=== PATIENT | female | born 1985 | race Caucasian/White ===

== ENCOUNTER 2025-05-03 18:03 | Outpatient (CLI) | payer BC, SELFPAY ==
[2025-05-03] VITALS (20 sets, daily range): BP systolic 121–142; BP diastolic 74–89; PULSE 88–112; RESP 16; TEMP 36.8; O2SAT 96–99
--- NOTE | 2025-05-03 19:49 | PC.OBNST ---
NST Note NST Note Start: 05/03/25 18:14 Freq: ONCE Status: Active Protocol: Document 05/03/25 19:47 AXEL (Rec: 05/03/25 19:48 Delia [id number]) NST Note 2 Para (# of births) 1 EDC 05/08/25 Gestational Age In 39 Weeks & 2 Days Weeks & Days Other Complaints Pt. here for NST, IUGR 8%, plan for induction in the morning. Reactive Yes Appropriate for Yes Gestational Age ZION Su RN Date 05/03/25 Reactive Yes Appropriate for Yes Gestational Age ZION Peter RN Date 05/03/25 OB NST charge Yes Complete NST Note Yes via Write Note The provider's electronic signature indicates the NST is reactive/appropriate for gestational age. *Note to provider: If an addendum is required, open the patient's chart and click on the note under the Nurse/Allied Health tab.
--- NOTE | 2025-05-03 20:23 | W.PM.NSTNOTE ---
NST Note NST Note NST Note: NST Note NST Note Start: 05/03/25 18:14 Freq: ONCE Status: Discharge Protocol: Document 05/03/25 19:47 Delia (Rec: 05/03/25 19:48 AXEL [id number]) NST Note 2 Para (# of births) 1 EDC 05/08/25 Gestational Age In 39 Weeks & 2 Days Weeks & Days Other Complaints Pt. here for NST, IUGR 8%, plan for induction in the morning. Reactive Yes Appropriate for Yes Gestational Age RN Jorden Su RN Date 05/03/25 Reactive Yes Appropriate for Yes Gestational Age ZION Peter RN Date 05/03/25 OB NST charge Yes Complete NST Note Yes via Write Note Addendum: FHT: Moderate variability, baseline 135 bpm, accels, no decels. Valery
== END 2025-05-03 19:45 | disposition home or self-care (01) ==
LOC: OB OUT 18:04 → OB 18:06
PROVIDERS: PCP Family Medicine; Visit Provider Family Medicine
DX: O36.5930 Maternal care for other known or suspected poor fetal growth, third trimester, not applicable or unspecified (principal); Z3A.39 39 weeks gestation of pregnancy
CPT/HCPCS: 59025; G0463

== ENCOUNTER 2025-05-04 07:30 | Inpatient (IN) | payer BC, SELFPAY ==
[2025-05-04] VITALS (40 sets, daily range): BP systolic 111–182; BP diastolic 56–116; PULSE 72–130; RESP 16–20; TEMP 35.7–36.7; O2SAT 90–100; BMI 35.6
[2025-05-04 09:09] LABS: Hematocrit* 35.5 % (33.0-51.0); Hemoglobin* 11.8 gm/dL (12.0-16.0); Immature Granulocytes Abs Auto 0.05 K/uL (0.00-0.30); Immature Granulocytes Pct Auto 0.5 %; Mean Corpuscular HGB Conc 33 gm/dL (32-36); Mean Corpuscular Hemoglobin 27 pg (26-34); Mean Corpuscular Volume 82 fL (80-100); RDW Coefficient of Variation % 16.0 % (11.5-15.5); Red Blood Count* 4.31 m/uL (4.00-5.20); White Blood Count* 9.37 K/uL (4.50-11.00)
[2025-05-04 09:45] LABS: Lymphocytes Absolute Auto 1.20 K/uL (0.90-2.90); Slide Review Reflex No
--- NOTE | 2025-05-04 09:49 | PM.OBHPLI ---
OB - H&P: HPI Labor/Induction History of Present Illness Time Seen by Provider: 08:40 Date Seen: 05/04/25 Chief Complaint: The patient is a 39 year old 2 para 1 at 39+3 weeks gestation by LMP, who presents for IOL for IUGR. Chief complaint: Maternity : 2 Para: 1 Indications for induction: other (IUGR) Narrative: Nathalie Berumen is a 39 year old female at 39+3 days by LMP c/w 8 week US who presents for IOL for IUGR. Growth US on 05/03 showed EFW 2863g, 8th percentile with AC 24th percentile, SDP 4.3 cm, S/D ratio 2.6 with adequate diastolic flow. Growth had previously been in the 19th percentile at 33 weeks. Repeat US ordered d/t measuring smaller than dates, and no change in fundal height over several weeks. otherwise complicated by AMA with normal level 2 and low risk NIPT, maternal obesity with prepreg BMI 32 on ASA, hx of delivery in IVF , MDD and GUEVARA on sertraline, mild intermittent asthma stable on albuterol, hx of genital herpes with no outbreak this . Patient had requested to take antiviral therapy after 36 weeks, but reports today she never started this. This AM, overall feeling well. Endorses intermittent contractions for about one week. Some more intense than others. Valery every 5-10 mins on the monitor. Normal movement. History of Present Dating criteria: based on LMP care: good care Ultrasounds: normal 1st trimester US and normal mid trimester US Abnormal ultrasound findings: 39+2 week growth US showed EFW 2863 g, 8th percentile Labs Blood type: AB (+) positive Rubella: immune RPR/VDLR: nonreactive GBS status: positive HBsAG: negative Narrative: Hep C neg HIV neg GC chlam neg GCT 98 Review of Systems Status of ROS: Reports: 10 or more systems reviewed and unremarkable except as noted in History and below Meds Home Medications and Allergies Home Medications ?Medication ?Instructions ?Recorded ?Confirmed ?Type acyclovir 400 mg tablet 400 mg PO 3XD 05/04/25 05/04/25 History Held on 05/04/25. Instructions: Not needed since last year aspirin 81 mg tablet,delayed 81 mg PO DAILY 05/04/25 05/04/25 History release (Adult Low Dose Aspirin) azelastine 137 mcg-fluticasone 50 1 spray intranasal BID 05/04/25 05/04/25 History mcg/spray nasal spray hydroxyzine HCl 25 mg tablet 25 mg PO Q6H PRN anxiety 05/04/25 05/04/25 History vit no.95-ferrous 1 tab PO DAILY 05/04/25 05/04/25 History fumarate 28 mg-folic acid 800 mcg tablet () sertraline 100 mg tablet 100 mg PO DAILY 05/04/25 05/04/25 History Allergies Allergy/AdvReac Type Severity Reaction Status Date / Time No Known Drug Allergies Allergy Verified 05/04/25 07:56 OB - H&P: Exam Physical Exam: Vital signs: Temp Pulse Resp BP 98 F 110 H 18 134/87 05/04/25 08:06 05/04/25 09:34 05/04/25 08:06 05/04/25 09:34 Narrative: General appearance: Well-appearing adult female. Alert, oriented and appropriate. Sitting up in hospital bed. HEENT: EOMI, no conjunctival injection or discharge. MMM. Neck: Supple. CV: RRR, no rubs, murmurs or extra heart sounds. Pulm: CTAB, no wheezes, rales or rhonchi. Abdomen: Gravid MSK: Moving all extremities. Ext: Warm and well-perfused. No LE edema. Skin: No rashes appreciated over exposed skin. Neuro: Grossly normal strength and sensation. No focal deficits. Psych: Normal affect. Detailed Labor and Delivery Exam: Dilation (cm): 2 Effacement (%): 50 Cervix position: mid Consistency: soft Cervical ripeness score: 6 Comments: Ctx q5-10 mins Fetus (Single): Station: -2 Amniotic Membrane Status: intact OB - Results Labs Labs: Short CBC 05/04/25 Range/Units 09:00 WBC 9.37 (4.50-11.00) K/uL Hgb 11.8 L (12.0-16.0) gm/dL Hct 35.5 (33.0-51.0) % Plt Count 157 (140-440) K/uL OB - Problem Based A/P Additional Plan (1) with 39 completed weeks gestation: Status: Acute (2) IUGR (intrauterine growth restriction): Problem details: 39 week US with EFW 2863g, 8%ile, normal fluid and S/D ratio 2.6 Status: Acute (3) AMA (advanced maternal age) multigravida 35+: Status: Acute (4) MDD (major depressive disorder): Status: Acute Plan: - Continue sertraline 100 mg daily (5) GUEVARA (generalized anxiety disorder): Status: Acute Plan - Vaginal cytotec per protocol for cervical ripening. Consider AROM, pitocin pending progress - GBS positive. Initiate abx in active labor - FHT category I on admission - May have epidural upon request - Peds will be needed for delivery
[2025-05-04] MEDS: AMPICILLIN 2 GM in 0.9 % SODIUM CHLORIDE Mini-bag 100 ML IVPB (16:53)
[2025-05-04] MEDS: LACTATED RINGERS 1000 ML 1,000 ML 125 ML IV ×2 (16:54→20:52)
--- NOTE | 2025-05-04 17:57 | PM.OBPNL ---
Subjective Time Seen by Provider: 17:57 Date Seen: 05/04/25 Narrative: Patient now s/p 3 doses of vaginal cytotec. Feeling contractions a little more intensely over the past 30 mins or so. S/p ampicillin x 1 dose at 1700. Requests AROM. Objective Vital Signs: Last Vital Signs Temp 98.1 F 05/04/25 16:25 Pulse 115 H 05/04/25 15:31 Resp 20 05/04/25 12:23 BP 139/84 05/04/25 15:31 Pelvic Exam Dilation (cm): 3 Effacement (%): 60 Station: -2 Contractions Monitor mode: External Contraction Frequency: 2-5 Assessment Assessment: induction ongoing Station: -2 Status: Category l Heart Rate Baseline: 140 Assisted Variability: Moderate (6-25) Monitor Accelerations: Present Monitor Decelerations: None Plan Plan: - AROM for clear fluid. Consider pitocin augmentation pending contraction pattern and labor progress - GBS positive. S/p one dose of ampicillin. Second dose due at 2100 - status reassuring - Epidural upon request - Anticipate vaginal delivery
[2025-05-04] MEDS: LIDOCAINE 2% (PF) 5 ML VIAL EPIDURAL (21:13)
[2025-05-04] MEDS: ROPIVACAINE 0.2% 100 ml 100 ML 12 MG EPIDURAL (21:13)
[2025-05-04] MEDS: AMPICILLIN 1 GM in 0.9 % SODIUM CHLORIDE Mini-bag 100 ML IVPB (21:30)
[2025-05-04] MEDS: ONDANSETRON 2 MG/ML inj 4 MG IV (21:33)
--- NOTE | 2025-05-04 22:20 | P.OBPN_ITS ---
Subjective Time Seen by Provider: 21:30 Date Seen: 05/04/25 Narrative: Patient progressively more uncomfortable following AROM. Requested epidural. This was placed and now resting comfortably. Several elevated blood pressures during epidural placement when she was in distress. Objective Vital Signs: Last Vital Signs Temp 96.2 F L 05/04/25 21:41 Pulse 72 05/04/25 22:10 Resp 16 05/04/25 21:41 BP 112/61 05/04/25 22:10 Pulse Ox 97 05/04/25 21:05 Pelvic Exam Dilation (cm): 8 Effacement (%): 90 Station: 0 Contractions Monitor mode: External Contraction Frequency: Poor capture of ctx. Regular every few mins. Assessment Assessment: active labor Station: 0 Amniotic Membrane Status: AROM Status: Category l Heart Rate Baseline: 125 Manipulative Therapy Specialist Variability: Moderate (6-25) Monitor Accelerations: Present Monitor Decelerations: None Plan Plan: - Now resting comfortably with epidural - FHT reassuring - Elevated blood pressures not sustained, however she had had several non-severe range pressures prior in the admission. Pre-eclampsia labs ordered - GBS +, Second dose of ampicillin infusing - Anticipate vaginal delivery
[2025-05-04] MEDS: PHENYLEPHRINE 100 MCG/ML SYRINGE IVP (22:49)
[2025-05-04] MEDS: OXYTOCIN 30 unit/500 ML in NS 30 UNIT/500 ML BAG 300 UNIT IVPB (23:23)
--- NOTE | 2025-05-04 23:47 | W.PM.OBVAGDE ---
OB Procedure Vag Delivery Mother Details Mother Details: The patient is a 39 year-old, 2, Para 1, admitted on 05/04/25 at 39+3 Days gestation for IOL for IUGR. Cervix 2/50/-3 on admission. Received 3 doses of vaginal cytotec for cervical ripening. AROM at 1753 for clear fluid. Rapidly progressed to active labor after AROM. Requested epidural for pain control with good effect. Found to be complete at 2255. Began pushing 2315. Delivered a vigorous female infant over intact perineum at 2319. Cord was cut and clamped immediately, and was brought to the warmer. Required 3 minutes of CPAP and 2-5 breaths of PPV. APGARs 6 and 9. was then brought to the maternal chest. Placenta delivered spontaneously at 2327; complete and 3V. There were no perineal lacerations. QBL 100 cc. Mom and baby are resting comfortably. : 2 Para: 1 Weeks Gestation: 39.3 Admission Date: 05/04/25 Additional Details Amniotic Membrane Status: AROM Amniotic Membrane Rupture Date: 05/04/25 Amniotic Membrane Rupture Time: 17:53 Amniotic Membrane Fluid Description: Clear Analgesia/Anesthesia Type: Epidural Waterbirth: No Pitcoin: No Intrapartal Events: Labor Induction Induction Method: per misoprostol protocol and AROM Delivery augmentation: pitocin Labor Onset: 17:53 Complete: 22:55 Pushin:15 Heart: heart tones during second stage were category I. Delivery Details Delivery Date: 05/04/25 Delivery Time: 23:19 Route of delivery: Infant Gender: Female Infant Viability: Alive; Heart Rate Present Position at Delivery: OA Delivery Details: Delivered via spontaneous vaginal delivery. was placed on maternal abdomen.? Cord was clamped and cut immediately. was brought to the warmer. 1 Minute Interval Total Score: 6 5 Minute Interval Total Score: 9 Additional Details Shoulder Dystocia: No Placenta Delivery Time: 23:27 Placental Delivery Description: Spontaneous Delivery repair: Vicryl Procedure Done: Global Blood Loss: 100 Laceration: None Episiotomy Description: None Blood Loss Measurement Type: QBL Bakri Used: No Sponge/Need Count Correct: Yes Cord Vessel Description: 3 Vessels Event Summary Status: Mother and infant were stable after delivery. Disposition: floor
[2025-05-04 23:52] LABS: Protein Creatinine Ratio Urine 0.28 (0-0.19)
[2025-05-04 23:55] LABS: Hematocrit* 36.6 % (33.0-51.0); Hemoglobin* 12.1 gm/dL (12.0-16.0); Mean Corpuscular HGB Conc 33 gm/dL (32-36); Mean Corpuscular Hemoglobin 28 pg (26-34); Mean Corpuscular Volume 83 fL (80-100); Red Blood Count* 4.39 m/uL (4.00-5.20); White Blood Count* 17.78 K/uL (4.50-11.00)
[2025-05-05] VITALS (16 sets, daily range): BP systolic 121–152; BP diastolic 65–90; PULSE 63–98; RESP 16–18; TEMP 36.4–36.9; O2SAT 96–99
[2025-05-05 00:13] LABS: Alanine Aminotransferase* 13 U/L (4-35); Aspartate Amino Transferase* 27 U/L (12-35); Blood Urea Nitrogen* 9 mg/dL (5-24); Creatinine* 0.6 mg/dL (0.5-1.5); Est. Creatinine Clearance* 101.53; Estimated Glomerular Filt Rate 118 ml/min
[2025-05-05 00:24] LABS: Slide Review Reflex No
[2025-05-05] MEDS: ACETAMINOPHEN 500 MG TABLET 1000 MG PO ×2 (03:38→12:17)
[2025-05-05 06:30] LABS: Hematocrit* 34.9 % (33.0-51.0); Hemoglobin* 11.5 gm/dL (12.0-16.0); Mean Corpuscular HGB Conc 33 gm/dL (32-36); Mean Corpuscular Hemoglobin 27 pg (26-34); Mean Corpuscular Volume 83 fL (80-100); Red Blood Count* 4.20 m/uL (4.00-5.20); White Blood Count* 15.25 K/uL (4.50-11.00)
[2025-05-05 06:31] LABS: Blood Urea Nitrogen* 7 mg/dL (5-24); Creatinine* 0.6 mg/dL (0.5-1.5); Est. Creatinine Clearance* 101.53; Estimated Glomerular Filt Rate 118 ml/min
[2025-05-05 06:32] LABS: Alanine Aminotransferase* 11 U/L (4-35); Aspartate Amino Transferase* 27 U/L (12-35)
[2025-05-05 06:40] LABS: Slide Review Reflex No
--- NOTE | 2025-05-05 07:25 | P.OBPN_ITS ---
OB - PN: Obj Exam Physical Exam: Vital signs: Temp Pulse Resp BP Pulse Ox O2 Del Method 97.8 F 98 16 129/84 96 Room Air 05/05/25 05:04 05/05/25 05:04 05/05/25 05:04 05/05/25 05:04 05/05/25 05:04 05/05/25 05:04 OB - PN: Obj Data Labs Labs: Laboratory Results - last 24 hr 05/04/25 05/04/25 05/04/25 09:00 23:50 Unknown WBC 9.37 17.78 H RBC 4.31 4.39 Hgb 11.8 L 12.1 Hct 35.5 36.6 MCV 82 83 MCH 27 28 MCHC 33 33 RDW Coeff of Markel 16.0 H Plt Count 157 145 Neut % (Auto) 79.7 H Lymph % (Auto) 13.3 L Spencer % (Auto) 5.8 Eos % (Auto) 0.6 Baso % (Auto) 0.1 Neut # (Auto) 7.50 H Lymph # (Auto) 1.20 Spencer # (Auto) 0.50 Eos # (Auto) 0.06 Baso # (Auto) 0.01 Abs Immat Gran (auto) 0.05 Imm/Tot Granulo (auto) 0.5 BUN 9 Creatinine 0.6 Estimated Creat Clear 101.53 Estimated GFR 118 AST 27 ALT 13 Urine Creatinine 58.1 Protein/Creatinin Ratio 0.28 H Urine Total Protein 16 Blood Type AB Positive Antibody Screen NEGATIVE 05/05/25 06:07 WBC 15.25 H RBC 4.20 Hgb 11.5 L Hct 34.9 MCV 83 MCH 27 MCHC 33 RDW Coeff of Markel Plt Count 152 Neut % (Auto) Lymph % (Auto) Spencer % (Auto) Eos % (Auto) Baso % (Auto) Neut # (Auto) Lymph # (Auto) Spencer # (Auto) Eos # (Auto) Baso # (Auto) Abs Immat Gran (auto) Imm/Tot Granulo (auto) BUN 7 Creatinine 0.6 Estimated Creat Clear 101.53 Estimated GFR 118 AST 27 ALT 11 Urine Creatinine Protein/Creatinin Ratio Urine Total Protein Blood Type Antibody Screen OB - PN: A/P Delivery Assessment and Plan (1) with 39 completed weeks gestation: Status: Acute (2) IUGR (intrauterine growth restriction): Problem details: 39 week US with EFW 2863g, 8%ile, normal fluid and S/D ratio 2.6 Status: Acute (3) AMA (advanced maternal age) multigravida 35+: Status: Acute (4) MDD (major depressive disorder): Status: Acute (5) GUEVARA (generalized anxiety disorder): Status: Acute
[2025-05-05] MEDS: DOCUSATE SODIUM 100 MG CAPSULE PO (08:14)
[2025-05-05] MEDS: IBUPROFEN 600 MG TABLET PO ×2 (08:45→18:39)
--- NOTE | 2025-05-05 17:10 | PM.OBPNVD1 ---
OB - PN:Subj Subjective Date Seen: 05/05/25 Narrative: Patient seen today on PP day 1. Doing well. Had elevated blood pressures overnight, diagnosed with gestational htn. Started on nifedipine. Pain under control with ibuprofen. Lochia decreasing. Ambulating. Tolerating diet. Normal urination. ok, using nipple shield. Baby doing well. OB - PN: Obj Exam Physical Exam: Vital signs: Temp Pulse Resp BP Pulse Ox O2 Del Method 97.6 F 85 16 132/89 99 Room Air 05/05/25 16:44 05/05/25 17:00 05/05/25 16:44 05/05/25 17:00 05/05/25 16:44 05/05/25 16:44 Narrative: Gen: NAD, ambulating around the room Mood: Appropriate OB - PN: Obj Data Labs Labs: Laboratory Results - last 24 hr 05/04/25 05/04/25 05/05/25 23:50 Unknown 06:07 WBC 17.78 H 15.25 H RBC 4.39 4.20 Hgb 12.1 11.5 L Hct 36.6 34.9 MCV 83 83 MCH 28 27 MCHC 33 33 Plt Count 145 152 BUN 9 7 Creatinine 0.6 0.6 Estimated Creat Clear 101.53 101.53 Estimated GFR 118 118 AST 27 27 ALT 13 11 Urine Creatinine 58.1 Protein/Creatinin Ratio 0.28 H Urine Total Protein 16 OB - PN: A/P Delivery Assessment and Plan (1) with 39 completed weeks gestation: Problem details: Delivered via at 39.3w after IOL for IUGR. Status: Acute (2) IUGR (intrauterine growth restriction): Problem details: 39 week US with EFW 2863g, 8%ile, normal fluid and S/D ratio 2.6. AGA at . Status: Acute (3) AMA (advanced maternal age) multigravida 35+: Status: Acute (4) MDD (major depressive disorder): Problem details: On sertraline. Status: Acute (5) GUEVARA (generalized anxiety disorder): Status: Acute (6) Gestational hypertension: Problem details: Elevated blood pressures BP 140-150s systolic, increased 30mg nifedipine BID Status: Acute Plan Comments: PPD#1 s/p uncomplicated , doing well. Plan: -- Continue current cares. -- Encourage ambulation.
[2025-05-06 03:20] VITALS: BP 137/89; PULSE 83; RESP 18; O2SAT 99
--- NOTE | 2025-05-06 06:27 | P.DS_ITS ---
DS: Providers Provider Date Seen: 05/06/25 Date of admission: 05/04/25 07:30 Primary care physician: Ashley Foreman MD Admitting Clinician: Ashley Foreman MD Attending Physician on discharge: Ashley Foreman MD DS: Diagnosis Discharge Diagnosis (1) with 39 completed weeks gestation: Status: Acute Problem details: Delivered via at 39.3w after IOL for IUGR, EFW 2863g, 8%ile at 39w, normal fluid and S/D ratio 2.6. AGA at . with nipple shield. (2) IUGR (intrauterine growth restriction): Status: Acute (3) AMA (advanced maternal age) multigravida 35+: Status: Acute (4) GUEVARA (generalized anxiety disorder): Status: Acute Problem details: On sertraline. (5) MDD (major depressive disorder): Status: Acute (6) Gestational hypertension: Status: Acute Problem details: Elevated blood pressures BP 140-150s systolic, increased 30mg nifedipine BID Exam Narrative: Exam Narrative: Gen: No acute distress CV: Regular rate and rhythm, normal S1,S2, no murmurs Resp: Normal rate and effort, clear to auscultation bilaterally Abd: Soft, uterus firm and nontender at umbilicus Ext: Warm, dry, 2+ pedal pulses, no edema bilaterally. Calves non-tender to palpation. Const: Vital Signs, click to edit/add: Vital Signs - 24 hr 05/05/25 08:17 05/05/25 11:48 05/05/25 16:44 Temperature 97.5 F L 97.8 F 97.6 F Pulse Rate [Pulse Oximeter] 72 89 80 Respiratory Rate 16 16 16 Blood Pressure [Le ft Arm] 126/82 132/88 150/90 H Pulse Oximetry 98 98 99 Oxygen Delivery Me thod Room Air Room Air Room Air 05/05/25 17:00 05/05/25 18:35 05/05/25 21:09 Temperature Pulse Rate [Pulse Oximeter] 85 97 89 Respiratory Rate 16 16 Blood Pressure [Le ft Arm] 132/89 129/81 132/79 Pulse Oximetry 97 97 Oxygen Delivery Me thod Room Air Room Air 05/05/25 23:55 05/06/25 03:20 Temperature 98.4 F Pulse Rate [Pulse Oximeter] 83 83 Respiratory Rate 18 18 Blood Pressure [Le ft Arm] 121/86 137/89 Pulse Oximetry 99 99 Oxygen Delivery Me thod Room Air Room Air OB - DS: Summary Hospital Course Hospital Course: The patient is a 39 year old G 2 P 2 at 39.3 weeks gestation that was admitted to the Center on 05/04/25 for IOL due to IUGR. She had an uncomplicated vaginal delivery. She delivered a viable female . She is breast feeding. Using a nipple shield, has sore nipples. the patient has done well. She did develop blood pressures in 140-150s intrapartum, started on nifedipine. On 30mg BID at day of discharge. [place] Infant Gender: Female Status at Discharge Functional status at discharge: independent ambulation Overall status at discharge: patient is progressing back to baseline Time Spent with Patient Time attestation: Total time spent providing and/or coordinating discharge services: Discharge Plan Discharge Disposition: Home, Self-Care Date of Admission: 05/04/25 07:30 Primary Care Provider: Ashley Foreman I Condition: Stable Anticipated Discharge Date/Time: 05/06/25 08:02 Discharge Medications: New nifedipine 30 mg Tablet Extended Release 30 mg PO BID 30 Days Qty: 60 0RF Continued sertraline 100 mg tablet 100 mg PO DAILY hydroxyzine HCl 25 mg tablet 25 mg PO Q6H PRN (Reason: anxiety) azelastine-fluticasone 137-50 mcg/spray spray,non-aerosol 1 spray INTRANASAL BID PNV no.95-ferrous fumarate-FA [] 28 mg iron- 800 mcg tablet 1 tab PO DAILY Discontinued acyclovir 400 mg tablet 400 mg PO 3XD aspirin [Adult Low Dose Aspirin] 81 mg tablet,delayed release (DR/EC) 81 mg PO DAILY Discharge Orders: Discharge Order (Routine); Ordered 05/06/25 Ordered By: Isis Smith Patient Education: OB High Blood Pressure DC, OB Care, OB Vaginal/Breast Feeding Additional Instructions: Please check your blood pressure twice daily until follow-up with Dr. Foreman. For chapped and painful nipples, I often recommend the Medela Hydrogel Pads. Place on nipples 24/7 for ~1-3 days (can be longer if needed) to assist in wound healing. Remove for feeds and then reapply. You have an appointment with Dr Foreman on 05/08 at 8:35 for baby weight check. She will check your blood pressure at that time. Activity Level: Activity as Tolerated Discharge Diet: Regular Follow Up Appointments: Ashley Foreman MD [Primary Care Provider, Obstetrics] [facility] Inst[facility] DS:Data Additional Comments Additional comments: - Pelvic rest for 6 weeks (no intercourse, tampons or douching), or until one week after vaginal bleeding stops. - Daily activities for the first week should be limited to taking care of patient and her baby, and only as tolerated. - Call MD if fever > 100.4 degrees, bleeding more than 1 pad / hour, foul- smelling discharge, passage of golf-ball sized blood clots, or worsening of pain not controlled by medications. - Counseled on signs of post- depression
[2025-05-06] MEDS: DOCUSATE SODIUM 100 MG CAPSULE PO (08:36)
[2025-05-06 09:25] VITALS: BP 126/83; PULSE 99; RESP 18; TEMP 36.9; O2SAT 99
[2025-05-06] MEDS: ACETAMINOPHEN 500 MG TABLET 1000 MG PO (09:57)
== END 2025-05-06 10:23 | disposition home or self-care (01) | DRG 560 ==
PROVIDERS: Admitting Provider Family Medicine; PCP Family Medicine; Visit Provider Family Medicine
DX: O36.5930 Maternal care for other known or suspected poor fetal growth, third trimester, not applicable or unspecified (principal); O13.4 Gestational [pregnancy-induced] hypertension without significant proteinuria, complicating childbirth; O99.824 Streptococcus B carrier state complicating childbirth; O99.344 Other mental disorders complicating childbirth; F32.9 Major depressive disorder, single episode, unspecified; F41.1 Generalized anxiety disorder; J45.20 Mild intermittent asthma, uncomplicated; Z3A.39 39 weeks gestation of pregnancy; Z37.0 Single live birth
CPT/HCPCS: 36415; 59200; 82565; 82570; 84156; 84450; 84460; 84520; 85018; 85025; 85027; 86592; 86850; 86900; 86901; 88307; A9270; J0290; J2405; J2795; J3010; J7120